=== PATIENT | female | born 1945 | race Caucasian/White ===

== ENCOUNTER 2023-09-28 11:39 | Emergency (ER) | payer MEDICARE, OTHER ==
[~2023-09-28] VITALS: Ht 160 cm; Wt 72.7 kg
[2023-09-28] MEDS: cloNIDine HCL 0.1 MG TAB PO ONE (13:04)
[2023-09-28 14:20] VITALS: BP 128/67; PULSE 61; RESP 16; TEMP 97.3; O2SAT 97
== END 2023-09-28 14:28 | disposition home or self-care (01) ==
LOC: ER 11:39
DX: I16.0 Hypertensive urgency (principal); E03.9 Hypothyroidism, unspecified; E11.9 Type 2 diabetes mellitus without complications; E78.5 Hyperlipidemia, unspecified; Z90.49 Acquired absence of other specified parts of digestive tract